=== PATIENT | male | born 1950 | race Caucasian/White ===

== ENCOUNTER → 2016-06-19 | Outpatient (CLI) | payer OTHER ==
[2016-06-19 12:06] VITALS: BP 151/78; PULSE 68; RESP 16; TEMP 98.5
--- NOTE | 2016-06-19 12:32 | P.PN ---
Progress Note - Text Patient returns for followup for chronic back pain with radiation to both legs and numbness/tingling in feet. Patient last underwent lumbar RFA in November 2015 with 1 month's relief. Patient continues on Coker and Neurontin medications for pain with good relief. Patient denies adverse drug effects from medications. Today, pt denies new-onset weakness, bowel/bladder incontinence, or any other signs or symptoms of cauda equina syndrome. There are no signs of acute intoxication, and no indications of medication diversion or overuse. In addition to above, 13-point review of systems is also negative for chest pain , shortness of breath, changes in vision, changes in hearing, new onset weakness , abdominal pain, diarrhea, extreme fatigue, malaise, fever, skin changes, homicidal or suicidal ideation, or bowel or bladder incontinence. Vital Signs: Reviewed in EMR Gen: WDWN, AAOx3, NAD HEENT: NCAT, EOMI, hearing grossly normal Pulm: resp unlabored Abd: soft, NT, ND Neck: supple, trachea midline ROM in flexion lumbar spine: reduced ROM in extension lumbar spine: reduced Lumbar paravertebral tenderness: + Facet loading: ++ bilateral SI joint tenderness: + bilateral Fuentes's test: + R > L Straight leg raise: + RLE Neuro: CN II-XII grossly intact, muscle strength lower extremities PRESERVED Imaging: Reviewed in EMR Assessment: 1. lumbar PLPS 2. lumbar radiculopathy 3. lumbar spondylosis without myelopathy Plan: 1. Explanation: Opioid and psychological risk scores were reviewed. Diagnoses , prognoses, and multiple treatment options including but not limited to physical therapy, interventional therapies, adjuvant medical therapies, narcotic medication therapies, and surgery were discussed with the patient and all questions were answered to the patient's satisfaction. 2. Opioid agreement: Patient has previously signed narcotic agreement, and was orally counseled to not overuse, abuse, divert, or cell medications, and to take them as prescribed by only 1 healthcare provider. The patient was also counseled to store opioid medications in a safe and preferably locked location. Patient was also counseled against driving or operating heavy equipment while using narcotic medications and also to not use alcohol or any illicit or recreational drugs. The patient verbalized understanding that lack of compliance with any of the above and likely result in failure to renew narcotic prescriptions, possible discharge from the clinic, and possible legal ramifications thereafter if indicated. 3. Counseling: The patient was counseled extensively on SMOKING CESSATION, BODY MASS INDEX, EXERCISE. Specifically, the patient was instructed regarding the importance of smoking cessation, obesity, and exercise in the context of both chronic pain and overall health. 4. Procedures: right lumbar RFA next 5. Consultations: None 6. Investigations: None 7. Medications: Coker x 2 months, Flexeril + Neurontin x 6 months 8. Disposition: f/u for procedure as scheduled PQRS measures: 1-Patient's medications are documented in the chart. 2-Tobacco use is positive, counseling NOT given 3-Patient has not had a pneumococcal vaccine. 4-Advanced care planning discussed, patient unable to give. 5-Opioid contract signed with the patient. 6-Pain positive, follow-up visit or procedure scheduled 7-Patient's blood pressure measured and documented, and patient will follow up with the primary care due to hypertension. 8-Patient's weight was measured, and body mass index ABOVE the normal limits, and counseling was done. Patient instructed to follow up with PCP. 9-Patient WAS NOT identified as an unhealthy alcohol user.
== END | disposition home or self-care (01) ==
LOC: PNWHC3 11:45
PROVIDERS: ATTEND Anesthesiology
DX: G97.1 Other reaction to spinal and lumbar puncture (principal); M54.16 Radiculopathy, lumbar region; M47.816 Spondylosis without myelopathy or radiculopathy, lumbar region; Z72.0 Tobacco use; I11.0 Hypertensive heart disease with heart failure; Z79.899 Other long term (current) drug therapy
CPT/HCPCS: 80307; 99211

== ENCOUNTER 2022-10-30 10:36 | Emergency (ER) | payer MEDICARE ==
[2022-10-30 10:42] VITALS: RESP 18; TEMP 98
[2022-10-30 11:24] LABS: ALT 22 U/L (4-49); AST 27 U/L (17-59); African American GFR (CKD) >90 (>60 ml/min/1.73 sqM); Albumin 4.2 g/dL (3.5-5.0); Alkaline Phosphatase 66 U/L (38-126); Anion Gap 12 mmol/L; Blood Urea Nitrogen 11 mg/dL (9-20); Carbon Dioxide 28 mmol/L (22-30); Chloride 101 mmol/L (98-107); Glucose 106 mg/dL (74-99); Non-African American GFR(CKD) 89 (>60 ml/min/1.73 sqM); Potassium 3.7 mmol/L (3.5-5.1); Sodium 141 mmol/L (137-145); Total Bilirubin 0.5 mg/dL (0.2-1.3); Total Protein 7.2 g/dL (6.3-8.2)
[2022-10-30 11:27] LABS: Basophils % (A) 0 %; Eosinophils # (A) 0.1 k/uL (0-0.7); Eosinophils % (A) 2 %; HCT 44.7 % (39.0-53.0); HGB 14.5 gm/dL (13.0-17.5); Lymphocytes # (A) 2.5 k/uL (1.0-4.8); Lymphocytes % (A) 29 %; MCH 28.8 pg (25.0-35.0); MCHC 32.5 g/dL (31.0-37.0); MCV 88.5 fL (80.0-100.0); Mean Platelet Volume 8.4; Monocytes # (A) 0.5 k/uL (0-1.0); Monocytes % (A) 6 %; Neutrophils # (A) 5.5 k/uL (1.3-7.7); Neutrophils % (A) 62 %; Platelet Count 189 k/uL (150-450); RBC 5.05 m/uL (4.30-5.90); RDW 13.8 % (11.5-15.5); WBC 8.8 k/uL (3.8-10.6)
[2022-10-30] MEDS ORDERED: lisinopriL 20 MG TAB PO STA (11:57)
--- NOTE | 2022-10-30 12:00 | ED ---
General Adult HPI - General Chief complaint: Recheck/Abnormal Lab/Rx Stated complaint: Dr Darby- High BP Time Seen by Provider: 10/30/22 11:19 Source: patient, family, RN notes reviewed Mode of arrival: ambulatory Limitations: no limitations - History of Present Illness Initial comments: Patient is a pleasant 71-year-old male presenting to the emergency department with concerns with high blood pressure. Patient does have history of high blood pressure and regularly sees a manager medical. Patient did go see his primary care physician for the first time today in years. Patient is symptom-free. Patient did have high blood pressure, greater than 200/100 and the office and was advised come the emergency department. Patient denies chest pain or weakness. No dyspnea. Patient states he is symptom-free. - Related Data Home Medications Medication Instructions Recorded Confirmed Aspirin EC [Ecotrin Low Dose] 81 mg PO DAILY 10/30/22 10/30/22 Atorvastatin [Lipitor] 40 mg PO DAILY 10/30/22 10/30/22 Losartan Potassium 50 mg PO DAILY 10/30/22 10/30/22 Metoprolol Succinate (ER) [Toprol 100 mg PO DAILY@1600 10/30/22 10/30/22 Xl] cloNIDine HCL [Catapres] 0.2 mg PO TID 10/30/22 10/30/22 Allergies Allergy/AdvReac Type Severity Reaction Status Date / Time No Known Allergies Allergy Verified 10/30/22 13:57 Review of Systems ROS Statement: Those systems with pertinent positive or pertinent negative responses have been documented in the HPI. ROS Other: All systems not noted in ROS Statement are negative. Constitutional: Denies: fever Eyes: Denies: eye pain ENT: Denies: ear pain Respiratory: Denies: cough, dyspnea Cardiovascular: Denies: chest pain Endocrine: Denies: fatigue Gastrointestinal: Denies: abdominal pain Genitourinary: Denies: dysuria Musculoskeletal: Denies: back pain Skin: Denies: lesions Neurological: Denies: headache, weakness Past Medical History Past Medical History: Hyperlipidemia, Hypertension, Myocardial Infarction ([place]), Musculoskeletal Disorder, Osteoarthritis (OA) Additional Past Medical History / Comment(s): chronic back, Last Myocardial Infarction Date:: 09/2014 History of Any Multi-Drug Resistant Organisms: None Reported Past Surgical History: Back Surgery, Heart Catheterization With Stent, Orthopedic Surgery Additional Past Surgical History / Comment(s): R UNDESENDED TESTICLE AT 19 YRS- testicle was removed at that time, NUMEROUS PAIN CLINIC VISITS, BACK SURGERY X3 (1988,1989,1992)- L3-L5 abnd maybe S1. Mole removal on chin benign. Past Anesthesia/Blood Transfusion Reactions: No Reported Reaction Additional Past Anesthesia/Blood Transfusion Reaction / Comment(s): Pt states he woke up in the middle of back surgery. Date of Last Stent Placement:: 09/27 Past Psychological History: No Psychological Hx Reported Smoking Status: Current every day smoker Past Alcohol Use History: None Reported Past Drug Use History: None Reported - Past Family History Father Family Medical History: Cancer, Coronary Artery Disease (CAD), CVA/TIA, Hypertension, Myocardial Infarction ([place]) Additional Family Medical History / Comment(s): Father had 7 cva's. He also had colon cancer.DE @ AGE 41, SMOKER Mother Family Medical History: Diabetes Mellitus, Hypertension Additional Family Medical History / Comment(s): Pt believes mother had bowel problems with a portion of her bowel removed. General Exam Limitations: no limitations General appearance: alert, in no apparent distress Head exam: Present: atraumatic Eye exam: Present: normal appearance Neck exam: Present: normal inspection Respiratory exam: Present: normal lung sounds bilaterally Cardiovascular Exam: Present: regular rate, normal rhythm, normal heart sounds Expanded Peripheral pulses: 2+: Radial (R), Radial (L), Posterior Tibialis (R), Posterior Tibialis (L), Dorsalis Pedis (R), Dorsalis Pedis (L) GI/Abdominal exam: Present: soft. Absent: tenderness, pulsatile mass Extremities exam: Present: normal inspection. Absent: pedal edema, calf tenderness Neurological exam: Present: alert, oriented X3, CN II-XII intact. Absent: motor sensory deficit Expanded Speech: Present: fluid speech Motor strength exam: RUE: 5, LUE: 5, RLE: 5, LLE: 5 Eye Response: (4) open spontaneously Motor Response: (6) obeys commands Verbal Response: (5) oriented Psychiatric exam: Present: normal affect, normal mood Skin exam: Present: normal color Course Vital Signs 10/30/22 10/30/22 10/30/22 10:36 11:55 12:54 Temperature 98 F Pulse Rate 64 Respiratory 18 Rate Blood Pressure 227/105 179/99 195/106 O2 Sat by Pulse 96 Oximetry 10/30/22 10/30/22 13:26 14:36 Temperature Pulse Rate 80 62 Respiratory 18 Rate Blood Pressure 210/115 204/101 O2 Sat by Pulse 97 Oximetry EKG Findings - EKG Results: EKG: interpreted by ERMD (Nonspecific T waves), sinus rhythm, normal axis, normal QRS Medical Decision Making - Medical Decision Making Was pt. sent in by a medical professional or institution (, PA, ACCOUNTS RECEIVABLE ADMINISTRATOR, urgent care, hospital, or [facility]...) When possible be specific @ -No Did you speak to anyone other than the patient for history (EMS, parent, family, police, friend...)? What history was obtained from this source @ -No Did you review nursing and triage notes (agree or disagree)? Why? @ -I reviewed and agree with nursing and triage notes Were old charts reviewed (outside hosp., previous admission, EMS record, old EKG, old radiological studies, urgent care reports/EKG's, [facility] records)? Report findings @ -No old charts were reviewed Differential Diagnosis (chest pain, altered mental status, abdominal pain women, abdominal pain men, vaginal bleeding, weakness, fever, dyspnea, syncope, headache, dizziness, GI bleed, back pain, seizure, CVA, palpatations, mental health)? @ -not applicable EKG interpreted by me (3pts min.). @ -As above X-rays interpreted by me (1pt min.). @ -None done CT interpreted by me (1pt min.). @ -None done U/S interpreted by me (1pt. min.). @ -None done What testing was considered but not performed or refused? (CT, X-rays, U/S, labs)? Why? @ -None What meds were considered but not given or refused? Why? @ -Patient has persistent hypertension. Patient has been ordered further medication. Patient is recommended to stay with further blood pressure control however refuses. Patient does them straight medical decision making. Patient states he has history of high blood pressure and his manager medical has discharged him with high blood pressure the blood he currently has. It is made aware of risks. Did you discuss the management of the patient with other professionals (pro fessionals i.e. , PA, ACCOUNTS RECEIVABLE ADMINISTRATOR, lab, RT, psych nurse, director of social services, manager application, teacher, associate loan officer, correctional case manager)? Give summary @ -Case was discussed with Dr. Deal with plans of admission Was smoking cessation discussed for >3mins.? @ -No Was critical care preformed (if so, how long)? @ -No Were there social determinants of health that impacted care today? How? (Homelessness, low income, unemployed, alcoholism, drug addiction, transportation, low edu. Level, literacy, decrease access to med. care, [place] [facility], rehab)? @ -No Was there de-escalation of care discussed even if they declined (Discuss DNR or withdrawal of care, Hospice)? DNR status @ -No What co-morbidities impacted this encounter? (DM, HTN, Smoking, COPD, CAD, Cancer, CVA, ARF, Chemo, Hep., AIDS, mental health diagnosis, sleep apnea, morbid obesity)? @ -None Was patient admitted / discharged? Hospital course, mention meds given and route, prescriptions, significant lab abnormalities, going to OR and other pertinent info. @ -Recommendation for admission however patient refuses and will leave AGAINST MEDICAL ADVICE. Patient is recommended close follow-up Undiagnosed new problem with uncertain prognosis? @ -No Drug Therapy requiring intensive monitoring for toxicity (Heparin, Nitro, Insulin, Cardizem)? @ -No Were any procedures done? @ -No Diagnosis/symptom? @ -Hypertensive urgency Acute, or Chronic, or Acute on Chronic? @ -Acute Uncomplicated (without systemic symptoms) or Complicated (systemic symptoms)? @ -default Side effects of treatment? @ -No Exacerbation, Progression, or Severe Exacerbation? @ -No Poses a threat to life or bodily function? How? (Chest pain, [place], [place], pneumonia, PE, COPD, DKA, ARF, appy, cholecystitis, CVA, Diverticulitis, Homicidal, Suicidal, threat to staff... and all critical care pts) @ -No - Lab Data Result diagrams: 10/30/22 10:45 10/30/22 10:45 Lab Results 10/30/22 10/30/22 Range/Units 10:45 10:45 WBC 8.8 (3.8-10.6) k/uL RBC 5.05 (4.30-5.90) m/uL Hgb 14.5 (13.0-17.5) gm/dL Hct 44.7 (39.0-53.0) % MCV 88.5 (80.0-100.0) fL MCH 28.8 (25.0-35.0) pg MCHC 32.5 (31.0-37.0) g/dL RDW 13.8 (11.5-15.5) % Plt Count 189 (150-450) k/uL MPV 8.4 Neutrophils % 62 % Lymphocytes % 29 % Monocytes % 6 % Eosinophils % 2 % Basophils % 0 % Neutrophils # 5.5 (1.3-7.7) k/uL Lymphocytes # 2.5 (1.0-4.8) k/uL Monocytes # 0.5 (0-1.0) k/uL Eosinophils # 0.1 (0-0.7) k/uL Basophils # 0.0 (0-0.2) k/uL Sodium 141 (137-145) mmol/L Potassium 3.7 (3.5-5.1) mmol/L Chloride 101 (98-107) mmol/L Carbon Dioxide 28 (22-30) mmol/L Anion Gap 12 mmol/L BUN 11 (9-20) mg/dL Creatinine 0.86 (0.66-1.25) mg/dL Est GFR (CKD-EPI)AfAm >90 (>60 ml/min/1.73 sqM) Est GFR (CKD-EPI)NonAf 89 (>60 ml/min/1.73 sqM) Glucose 106 H (74-99) mg/dL Calcium 9.0 (8.4-10.2) mg/dL Total Bilirubin 0.5 (0.2-1.3) mg/dL AST 27 (17-59) U/L ALT 22 (4-49) U/L Alkaline Phosphatase 66 (38-126) U/L Total Protein 7.2 (6.3-8.2) g/dL Albumin 4.2 (3.5-5.0) g/dL Disposition Clinical Impression: Hypertensive urgency Disposition: Left Against Medical Advice Instructions (If sedation given, give patient instructions): Hypertension (ED) Additional Instructions: Please do follow-up with your primary care physician and manager medical tomorrow. You are leaving AGAINST MEDICAL ADVICE. Return for increased blood pressure, chest pain or weakness, worsening or changing symptoms or any other concerns. Is patient prescribed a controlled substance at d/c from ED?: No Referrals: Lucero Marcelino MD [Primary Care Provider] - 1-2 days Time of Disposition: 15:06
[2022-10-30] MEDS ORDERED: hydrALAZINE HCL 20 MG/ML 1 ML VIAL IVP STA ×2 (13:52→14:42)
[2022-10-30 15:30] VITALS: BP 177/103; PULSE 64
== END 2022-10-30 15:30 | disposition left against medical advice (07) ==
LOC: EC 10:36
DX: I16.0 Hypertensive urgency (principal); E78.5 Hyperlipidemia, unspecified; I25.2 Old myocardial infarction; M19.90 Unspecified osteoarthritis, unspecified site; F17.200 Nicotine dependence, unspecified, uncomplicated; Z79.82 Long term (current) use of aspirin; Z79.899 Other long term (current) drug therapy; Z53.29 Procedure and treatment not carried out because of patient's decision for other reasons
CPT/HCPCS: 36415; 93005; 80053; 85025; 99283; 96374; 96375; J0360

== ENCOUNTER → 2023-02-09 | Outpatient (CLI) | payer MEDICARE ==
--- NOTE | 2023-02-09 09:47 | US ---
EXAMINATION TYPE: US renal artery duplex complete DATE OF EXAM: 02/09/2023 COMPARISON: NONE CLINICAL INDICATION: Male, 72 years old with history of E78.2 MIXED HYPERLIPIDEMIA; stenosis HTN MEASUREMENTS: RENAL SIZE: Rt Kidney: 11.6 x 4.9 x 5.2 cm Lt Kidney: 12.7 x 5.4 x 5.6 cm Cystic area upper pole 7.2 x 7.0 x6.4 cm. RESISTANCE INDEX Right: 0.77 Left: 0.69 RA/AO RATIO (< 3.5 ) Right: 2.9 Left: 2.2 RA VELOCITY ( < 180 cm/s) Right: 186 Left: 140 IMPRESSION: Mild right renal artery stenosis.
[2023-02-09 15:51] LABS: ALT 27 U/L (10-49); AST 20 U/L (14-35); Chol/HDL Ratio 4.18 Ratio; LDL Cholesterol,Calculated 39.2 mg/dL (0.0-131.0)
== END | disposition home or self-care (01) ==
LOC: RADUSWWP 07:56
PROVIDERS: ATTEND Internal Medicine Cardiovascular Disease
DX: E78.2 Mixed hyperlipidemia (principal); I10 Essential (primary) hypertension; I70.1 Atherosclerosis of renal artery
CPT/HCPCS: 80061; 84450; 84460; 93975

== ENCOUNTER 2024-04-01 20:45 | Emergency (ER) | payer MEDICARE ==
--- NOTE | 2024-04-01 21:01 | ED ---
General Adult HPI - General Source: patient Mode of arrival: ambulatory Limitations: no limitations <Henri Levy - Last Filed: 04/01/24 21:01> <Gorge Colvin - Last Filed: 04/02/24 01:22> - General Stated complaint: Abd Pain Time Seen by Provider: 04/01/24 21:01 - History of Present Illness Initial comments: 73-year-old male present with chief complaint of abdominal pain. This is right lower quadrant pain that started a few hours ago. No radiation to the back. No nausea vomiting or dysuria. (Henri Levy) - Related Data Home Medications Medication Instructions Recorded Confirmed Aspirin EC [Ecotrin Low Dose] 81 mg PO DAILY 10/30/22 10/30/22 Atorvastatin [Lipitor] 40 mg PO DAILY 10/30/22 10/30/22 Losartan Potassium 50 mg PO DAILY 10/30/22 10/30/22 Metoprolol Succinate (ER) [Toprol 100 mg PO DAILY@1600 10/30/22 10/30/22 Xl] cloNIDine HCL [Catapres] 0.2 mg PO TID 10/30/22 10/30/22 Previous Rx's Medication Instructions Recorded HYDROcodone/APAP 5-325MG [[place] 1 tab PO Q4HR PRN 3 Days #18 tab 04/02/24 5-325] Ondansetron Odt [Zofran ODT] 4 mg PO Q8HR PRN #10 tab 04/02/24 Tamsulosin [Flomax] 0.4 mg PO DAILY #14 cap 04/02/24 Allergies Allergy/AdvReac Type Severity Reaction Status Date / Time No Known Allergies Allergy Verified 10/30/22 13:57 Review of Systems ROS Other: All systems not noted in ROS Statement are negative. <Henri Levy - Last Filed: 04/01/24 21:01> ROS Other: All systems not noted in ROS Statement are negative. <Gorge Colvin - Last Filed: 04/02/24 01:22> ROS Statement: Those systems with pertinent positive or pertinent negative responses have been documented in the HPI. Past Medical History Past Medical History: Hyperlipidemia, Hypertension, Myocardial Infarction ([place]), Musculoskeletal Disorder, Osteoarthritis (OA) Additional Past Medical History / Comment(s): chronic back, Last Myocardial Infarction Date:: 09/2014 History of Any Multi-Drug Resistant Organisms: None Reported Past Surgical History: Back Surgery, Heart Catheterization With Stent, Orthopedic Surgery Additional Past Surgical History / Comment(s): R UNDESENDED TESTICLE AT 19 YRS- testicle was removed at that time, NUMEROUS PAIN CLINIC VISITS, BACK SURGERY X3 (1988,1989,1992)- L3-L5 abnd maybe S1. Mole removal on chin benign. Past Anesthesia/Blood Transfusion Reactions: No Reported Reaction Additional Past Anesthesia/Blood Transfusion Reaction / Comment(s): Pt states he woke up in the middle of back surgery. Date of Last Stent Placement:: 09/27 Past Psychological History: No Psychological Hx Reported Smoking Status: Current every day smoker Past Alcohol Use History: None Reported Past Drug Use History: None Reported - Past Family History Father Family Medical History: Cancer, Coronary Artery Disease (CAD), CVA/TIA, Hypertension, Myocardial Infarction (AL) Additional Family Medical History / Comment(s): Father had 7 cva's. He also had colon cancer.AL @ AGE 41, SMOKER Mother Family Medical History: Diabetes Mellitus, Hypertension Additional Family Medical History / Comment(s): Pt believes mother had bowel problems with a portion of her bowel removed. <Henri Levy - Last Filed: 04/01/24 21:01> General Exam <Henri Levy - Last Filed: 04/01/24 21:01> - General Exam Comments Initial Comments: Visual Physical Exam Vital signs reviewed General: Well-appearing, nontoxic, no acute distress. Head: Normocephalic, atraumatic Eyes: PERRLA, EOMI ENT: Airway patent Chest: Nonlabored breathing Skin: No visual rash, normal skin tone Neuro: Alert and oriented 3 Musculoskeletal: No gross abnormalities (Henri Levy) Course Vital Signs 04/01/24 20:59 Temperature 98.4 F Pulse Rate 86 Respiratory 18 Rate Blood Pressure 171/83 O2 Sat by Pulse 95 Oximetry Medical Decision Making <Henri Levy - Last Filed: 04/01/24 21:01> - Lab Data Result diagrams: 04/01/24 22:06 04/01/24 22:06 <Gorge Colvin - Last Filed: 04/02/24 01:22> - Medical Decision Making I performed the quick note portion of this visit, electronically signed Henri Levy PA-C (Henri Levy) - Lab Data Lab Results 04/01/24 04/01/24 04/01/24 Range/Units 22:06 22:06 22:06 WBC 13.0 H (3.8-10.6) k/uL RBC 5.14 (4.30-5.90) m/uL Hgb 15.3 (13.0-17.5) gm/dL Hct 47.7 (39.0-53.0) % MCV 93.0 (80.0-100.0) fL MCH 29.8 (25.0-35.0) pg MCHC 32.0 (31.0-37.0) g/dL RDW 13.0 (11.5-15.5) % Plt Count 251 (150-450) k/uL MPV 7.9 Neutrophils % 80 % Lymphocytes % 12 % Monocytes % 7 % Eosinophils % 0 % Basophils % 0 % Neutrophils # 10.4 H (1.3-7.7) k/uL Lymphocytes # 1.5 (1.0-4.8) k/uL Monocytes # 0.9 (0-1.0) k/uL Eosinophils # 0.1 (0-0.7) k/uL Basophils # 0.0 (0-0.2) k/uL Sodium 137 (137-145) mmol/L Potassium 4.0 (3.5-5.1) mmol/L Chloride 97 L (98-107) mmol/L Carbon Dioxide 31 H (22-30) mmol/L Anion Gap 9 mmol/L BUN 18 (9-20) mg/dL Creatinine 1.57 H (0.66-1.25) mg/dL Est GFR (CKD-EPI)AfAm 51 (>60 ml/min/1.73 sqM) Est GFR (CKD-EPI)NonAf 44 (>60 ml/min/1.73 sqM) Glucose 127 H (74-99) mg/dL Plasma Lactic Acid Remy 1.4 (0.7-2.0) mmol/L Calcium 9.7 (8.4-10.2) mg/dL Total Bilirubin 1.1 (0.2-1.3) mg/dL AST 44 (17-59) U/L ALT 29 (4-49) U/L Alkaline Phosphatase 66 (38-126) U/L Total Protein 7.6 (6.3-8.2) g/dL Albumin 4.6 (3.5-5.0) g/dL Amylase 52 (30-110) U/L Lipase 114 (23-300) U/L Disposition <Henri Levy - Last Filed: 04/01/24 21:01> Is patient prescribed a controlled substance at d/c from ED?: Yes <Gorge Colvin - Last Filed: 04/02/24 01:22> Clinical Impression: Kidney stone Disposition: HOME SELF-CARE Condition: Good Instructions (If sedation given, give patient instructions): Kidney Stones (ED) Prescriptions: Tamsulosin [Flomax] 0.4 mg PO DAILY #14 cap HYDROcodone/APAP 5-325MG [[place] 5-325] 1 tab PO Q4HR PRN 3 Days #18 tab PRN Reason: Pain Ondansetron Odt [Zofran ODT] 4 mg PO Q8HR PRN #10 tab PRN Reason: Nausea Referrals: Lucero Marcelino MD [Primary Care Provider] - 1-2 days Joshua Webster MD [STAFF PHYSICIAN] - 1-2 days
[2024-04-01 22:25] LABS: Basophils % (A) 0 %; Eosinophils # (A) 0.1 k/uL (0-0.7); Eosinophils % (A) 0 %; HCT 47.7 % (39.0-53.0); HGB 15.3 gm/dL (13.0-17.5); Lymphocytes # (A) 1.5 k/uL (1.0-4.8); Lymphocytes % (A) 12 %; MCH 29.8 pg (25.0-35.0); Mean Platelet Volume 7.9; Monocytes # (A) 0.9 k/uL (0-1.0); Monocytes % (A) 7 %; Neutrophils # (A) 10.4 k/uL (1.3-7.7); Neutrophils % (A) 80 %; Platelet Count 251 k/uL (150-450); RBC 5.14 m/uL (4.30-5.90)
[2024-04-01 22:44] LABS: ALT 29 U/L (4-49); AST 44 U/L (17-59); African American GFR (CKD) 51 (>60 ml/min/1.73 sqM); Albumin 4.6 g/dL (3.5-5.0); Alkaline Phosphatase 66 U/L (38-126); Amylase 52 U/L (30-110); Anion Gap 9 mmol/L; Blood Urea Nitrogen 18 mg/dL (9-20); Calcium 9.7 mg/dL (8.4-10.2); Carbon Dioxide 31 mmol/L (22-30); Chloride 97 mmol/L (98-107); Glucose 127 mg/dL (74-99); Lipase 114 U/L (23-300); Non-African American GFR(CKD) 44 (>60 ml/min/1.73 sqM); Sodium 137 mmol/L (137-145); Total Bilirubin 1.1 mg/dL (0.2-1.3); Total Protein 7.6 g/dL (6.3-8.2)
--- NOTE | 2024-04-01 23:42 | CT ---
EXAMINATION TYPE: CT abdomen pelvis w con DATE OF EXAM: 04/01/2024 COMPARISON: None. HISTORY: RLQ pain that started around 30 mins to 1 hour ago. no other complaints. last bowel movemen t 2 days ago. HX: R UNDESCENDED TESTICLE AT 19 YRS- testicle was removed at that time, NUMEROUS PAIN CLINIC VISITS, BACK SURGERY X3 (1988,1989,1992)- L3-L5 and maybe S1. Mole removal on chin benign. CT DLP: 1654.8 mGycm, Automated Exposure Control for Dose Reduction was Utilized. CONTRAST: CT scan of the abdomen and pelvis is performed with oral and with IV Contrast, patient injected with 80 ml mL of Isovue 300. FINDINGS: LUNG BASES: No significant abnormality is appreciated. LIVER/GB: Liver is heterogeneous hypodense consistent with diffuse fatty infiltrative hepatocellular disease. There is 5.0 cm thin-walled cyst in the left hepatic lobe axial image 14. PANCREAS: No significant abnormality is seen. SPLEEN: No significant abnormality is seen. ADRENALS: Symmetric thickening to both adrenal glands favors benign lipid rich hyperplasia. KIDNEYS: Probable 2 to 3 mm nonobstructing calculus lower pole right kidney coronal image 64. Additio nal 2 mm calculus at right UVJ axial image 74 causing mild right-sided hydronephrosis and at least de layed right renal excretion. There is 3 mm nonobstructing calculus in lower pole collecting system left kidney coronal image 65. N o left-sided hydronephrosis. There is 5.1 cm simple appearing thin-walled cyst laterally in the left kidney BOWEL: No significant abnormality is seen. PROSTATE/SEMINAL VESICLES: Mildly enlarged prostate gland. LYMPH NODES: No greater than 1cm abdominal or pelvic lymph nodes are appreciated. OSSEOUS STRUCTURES: Multilevel spurring in the thoracolumbar spine. Aaleduoi-wn-axwoon disc space romeo rowing with vacuum disc phenomenon at L4-L5 level. Moderate narrowing of both hip joints. OTHER: Moderate peripheral plaque of the abdominal aorta extends into branch vessels.. IMPRESSION: There is a 2 mm calculus at right UVJ causing mild right-sided hydronephrosis and at leas t delayed renal excretion. [facility], Workstation: [facility], 04/01/2024 11:39 PM
[2024-04-02] MEDS: TAMSULOSIN 0.4 MG CAP.ER.24H PO STA (00:08)
[2024-04-02] MEDS: MORPHINE SULFATE 4 MG/ML SYRINGE IV STA (00:08)
[2024-04-02] MEDS: SODIUM CHLORIDE 0.9% 500 ML 500 ML IV STA (00:09)
[2024-04-02 01:21] LABS: Appearance,Urine Clear (Clear); Bilirubin,Urine Negative (Negative); Blood,Urine Negative (Negative); Color,Urine Colorless; Glucose,Urine (UA) Negative (Negative); Ketones,Urine Negative (Negative); Leukocyte Esterase,Urine Negative (Negative); Nitrite,Urine Negative (Negative); PH, Urine 5.5 (5.0-8.0); Protein,Urine Negative (Negative); Specific Gravity,Urine 1.032 (1.001-1.035); Urobilinogen,Urine <2.0 mg/dL (<2.0)
[2024-04-02 01:32] VITALS: RESP 16
[2024-04-02 02:12] VITALS: BP 159/98; PULSE 95; TEMP 98.7
[2024-04-02] MEDS: KETOROLAC 15 MG/ML 1 ML VIAL IVP STA (02:12)
[2024-04-02] MEDS: HYDROmorphone 1 MG/ML 1 ML SYRINGE IVP STA (02:13)
== END 2024-04-02 02:13 | disposition home or self-care (01) ==
LOC: EC 20:45
CPT/HCPCS: 36415; 74177; 80053; 81003; 82150; 83605; 83690; 85025; 96374; 96375; 99284